=== PATIENT | female | born 1930 | race Caucasian/White ===

== ENCOUNTER 2018-04-13 20:36 | Observation (INO) | payer MEDICARE, BC ==
[2018-04-13] MEDS ORDERED: TYLENOL 325 MG (21:45)
[2018-04-13] MEDS ORDERED: Sodium Chloride 0.9% 1000 ML 1,000 ML (21:45)
[2018-04-13] MEDS: Sodium Chloride 0.9% 1000 ML 1,000 ML IV (21:49)
[2018-04-13] MEDS: TYLENOL 325 MG PO (21:50)
[2018-04-13 22:03] LABS: BASOPHIL % 0.2 % (0.0-0.4); Basophil (Absolute #) 0.02 (0-0.4); Granulocyte Absolute (ANC) 7.54 (1.4-6.9); Granulocytes % 72.1 % (36.0-66.0); Hematocrit 33.8 % (35-47); Hemoglobin 10.4 gm/dl (12.0-16.0); Lymphocyte (Absolute #) 2.19 (1.0-4.6); Lymphocytes % 20.9 % (24.0-44.0); Mean Cell Volume 97.4 fl (78-100); Mean Corpuscular Hgb Concent. 30.8 g/dl (32-36); Mean Platelet Volume 10.4 fl (6-9.5); Monocyte (Absolute #) 0.61 (0.0-1.3); Monocytes % 5.8 % (0.0-12.0); Platelet Count 376 K/mm3 (150-450); Red Blood Count 3.47 M/mm3 (4.1-5.4); Red Cell Distribution Width 17.9 % (11.5-14.0); White Blood Count 10.5 K/mm3 (4.0-10.5)
[2018-04-13 22:24] LABS: ADD MANUAL DIFF? NO (NO); Mean Corpuscular Hemoglobin 29.9 pg (26-32)
[2018-04-13 22:25] LABS: INR 1.04 (0.8-3.0)
[2018-04-13 22:25] LABS: PROTIME 12.1 SECONDS (9.95-12.35)
[2018-04-13 22:30] LABS: ALBUMIN 4.2 g/dL (3.5-5.0); ALKALINE PHOSPHATASE 68 U/L (38-126); AMYLASE 58 U/L (30-110); ANION GAP 15.8 MEQ/L (5-15); BLOOD UREA NITROGEN 16 mg/dL (7-17); CHLORIDE 102 mmol/L (98-107); Calcium 9.1 mg/dL (8.4-10.2); Carbon Dioxide 26 mmol/L (22-30); EST GLOMERULAR FILTRATION RATE > 60.0 ML/MIN; Glucose 118 mg/dL (74-106); LIPASE 22 U/L (23-300); Potassium 3.8 mmol/L (3.5-5.1); SGOT/AST 16 U/L (14-36); SGPT/ALT 16 U/L (0-35); SODIUM 139 mmol/L (137-145); Total Protein 7.4 g/dL (6.3-8.2)
[2018-04-13 22:34] LABS: ADD URINE CULTURE? NO (NO); Appearance CLEAR (CLEAR); Bilirubin NEGATIVE (NEGATIVE); Blood NEGATIVE Ery/ul (0-5); COMPLETE URINE MICROSCOPIC? NO; Collection Type CLEAN CATCH; Glucose NEGATIVE (NEGATIVE); Ketones NEGATIVE (NEGATIVE); Leukocyte Esterase NEGATIVE (NEGATIVE); Nitrite NEGATIVE (NEGATIVE); Protein,Urine Dip NEGATIVE (Negative); Urobilinogen NORMAL mg/dL (0-1)
[2018-04-13] MEDS ORDERED: Zofran 4 MG/2 ML VIAL (22:41)
[2018-04-13] MEDS ORDERED: SUBLIMAZE 100 MCG/2 ML (22:41)
[2018-04-13] MEDS: Zofran 4 MG/2 ML VIAL IV (22:46)
[2018-04-13] MEDS: SUBLIMAZE 100 MCG/2 ML IV (22:47)
[2018-04-14] MEDS ORDERED: Levofloxacin 500MG/100ML D5W 500 MG/100 ML BAG IV ×2 (00:12→22:00)
[2018-04-14] MEDS ORDERED: Sodium Chloride 0.9% 1000 ML 1,000 ML (00:16)
[2018-04-14] MEDS: Levofloxacin 500MG/100ML D5W 500 MG/100 ML BAG IV (00:20)
[2018-04-14] MEDS ORDERED: MORPHINE SULFATE 2 MG INJ IV (00:36)
[2018-04-14] MEDS ORDERED: DUONEB 0.5-3 MG/3 ml Neb IH (00:37)
[2018-04-14] MEDS: DUONEB 0.5-3 MG/3 ml Neb IH (00:40)
[2018-04-14] MEDS: Sodium Chloride 0.9% 1000 ML 1,000 ML IV ×2 (00:50→16:26)
[2018-04-14] MEDS: FLAGYL 500 MG IVPB 250 MG/50 ML BAG IV ×3 (05:43→17:51)
[2018-04-14 06:10] LABS: Lactic Acid 1.2 (0.4-2.0)
[2018-04-14] MEDS ORDERED: MORPHINE SULFATE 4 MG INJ IV (06:28)
[2018-04-14] MEDS: Zofran 4 MG/2 ML VIAL IV (08:07)
[2018-04-14] MEDS: PROTONIX 40 MG IV IV (09:46)
[2018-04-14] MEDS: TYLENOL 325 MG PO (09:54)
[2018-04-14] MEDS ORDERED: Ventolin Hfa MDI IH (09:59)
[2018-04-14] MEDS ORDERED: Lotrel 5/10 MG PO (10:00)
[2018-04-14] MEDS ORDERED: NON-FORMULARY ITEM (Omeprazole 20 Mg [Prilosec 20 Mg] 20 MG) PO (10:00)
[2018-04-14] MEDS ORDERED: BENAZEPRIL PO (10:00)
[2018-04-14] MEDS ORDERED: AMLODIPINE BESYLATE PO (10:00)
[2018-04-14] MEDS ORDERED: PROVENTIL COMMON CANISTER IH (10:04)
[2018-04-14] MEDS: NORVASC 5 MG PO (10:19)
[2018-04-14] MEDS: Lotensin 10 MG PO (10:19)
[2018-04-14] MEDS: ZYLOPRIM 100 MG PO (10:19)
[2018-04-14] MEDS: DELTASONE 5 MG PO (10:20)
[2018-04-14] MEDS: Protonix 40MG Tablet PO (10:20)
[2018-04-14] MEDS: TYLENOL EXTRA STRENGTH 500 MG PO (20:16)
[2018-04-14] MEDS: Levaquin 250MG/50ML D5W 250 MG/50 ML BAG IV (21:24)
[2018-04-15] MEDS: FLAGYL 500 MG IVPB 250 MG/50 ML BAG IV ×5 (00:03→23:14)
[2018-04-15] MEDS: TYLENOL EXTRA STRENGTH 500 MG PO ×3 (04:28→19:28)
[2018-04-15] MEDS: Sodium Chloride 0.9% 1000 ML 1,000 ML IV (05:54)
[2018-04-15] MEDS: ZYLOPRIM 100 MG PO (10:24)
[2018-04-15] MEDS: Lotensin 10 MG PO (10:24)
[2018-04-15] MEDS: DELTASONE 5 MG PO (10:24)
[2018-04-15] MEDS: NORVASC 5 MG PO (10:24)
[2018-04-15] MEDS: Protonix 40MG Tablet PO (10:25)
[2018-04-15] MEDS: DUONEB 0.5-3 MG/3 ml Neb IH (20:48)
[2018-04-15] MEDS: Levaquin 250MG/50ML D5W 250 MG/50 ML BAG IV (21:31)
[2018-04-16] MEDS: TYLENOL EXTRA STRENGTH 500 MG PO ×2 (01:00→09:04)
[2018-04-16] MEDS: FLAGYL 500 MG IVPB 250 MG/50 ML BAG IV ×2 (05:59→11:50)
[2018-04-16] MEDS: DUONEB 0.5-3 MG/3 ml Neb IH (06:34)
[2018-04-16] MEDS: NORVASC 5 MG PO (09:04)
[2018-04-16] MEDS: DELTASONE 5 MG PO (09:04)
[2018-04-16] MEDS: Lotensin 10 MG PO (09:04)
[2018-04-16] MEDS: ZYLOPRIM 100 MG PO (09:04)
[2018-04-16] MEDS: Protonix 40MG Tablet PO (09:04)
[2018-04-16] MEDS: BUMEX 1 MG PO (10:56)
== END 2018-04-16 14:30 | disposition home or self-care (01) ==
LOC: MED SURG 04-14 00:55 → ED 20:36
PROVIDERS: Internal Medicine
CPT/HCPCS: 36000; 36415; 71045; 74177; 80053; 81002; 82150; 83605; 83690; 85025; 85610; 87040; 94150; 94640; 94760; 96374; 99285; J1956; J2405; J3010

== ENCOUNTER 2018-09-27 18:37 | Emergency (ER) | payer MEDICARE, BC ==
[2018-09-27] MEDS ORDERED: Sodium Chloride 0.9% 1000 ML 1,000 ML IV SCH (19:15)
--- NOTE | 2018-09-27 19:19 | ERPHSYRPT ---
- History of Present Illness Time Seen by Provider: 09/27/18 19:20 Source: patient, family Exam Limitations: no limitations Physician History: 87-year-old, female with significant past medical history of hypertension, COPD , started having a blood in her urine. She denies any fever, chills, nausea, vomiting, or any pain during urination. Timing/Duration: today Activites at Onset: none Severity of Pain-Max: none Severity of Pain-Current: none Prior abdominal problems: none Sexual intercourse history: non-contributory Modifying Factors: Improves With: nothing Associated Symptoms: denies symptoms Allergies/Adverse Reactions: Tetracyclines Allergy (Mild, Verified 09/27/18 19:15) Home Medications: Albuterol Sulfate [Proair Hfa] 2 puff IH QID PRN PRN 01/07/15 [History] Allopurinol 100 mg [Zyloprim 100 mg] 1 tab PO DAILY 01/07/15 [History] Amlodipine Besylate/Benazepril [Lotrel 10-40 mg Capsule] 1 cap PO DAILY [History] Omeprazole 20 MG [Prilosec 20 mg] 20 mg PO DAILY 01/07/15 [History] Acetaminophen 500 mg [Tylenol Extra Strength 500 mg] 1,000 mg PO Q6H PRN PRN 04/14/18 [History] predniSONE [Prednisone] 5 mg PO DAILY 04/14/18 [History] Hx Tetanus, Diphtheria Vaccination/Date Given: No Hx Influenza Vaccination/Date Given: Yes Hx Pneumococcal Vaccination/Date Given: Yes - Review of Systems Constitutional: No Fever, No Chills Eyes: No Symptoms Ears, Nose, & Throat: No Symptoms Respiratory: No Cough, No Dyspnea Cardiac: No Chest Pain, No Edema, No Syncope Abdominal/Gastrointestinal: No Abdominal Pain, No Nausea, No Vomiting, No Diarrhea Genitourinary Symptoms: Hematuria, No Dysuria Musculoskeletal: No Back Pain, No Neck Pain Skin: No Rash Neurological: No Dizziness, No Focal Weakness, No Sensory Changes Psychological: No Symptoms Endocrine: No Symptoms All Other Systems: Reviewed and Negative - Past Medical History Pertinent Past Medical History: Yes Neurological History: No Pertinent History ENT History: Cataracts Cardiac History: Hypertension Respiratory History: Bronchitis, COPD Endocrine Medical History: No Pertinent History Musculoskeletal History: Arthritis GI Medical History: Polyps History: No Pertinent History Psycho-Social History: No Pertinent History Female Reproductive Disorders: No Pertinent History Other Medical History: anal polyp - Past Surgical History Past Surgical History: Yes Neuro Surgical History: No Pertinent History Cardiac: No Pertinent History Respiratory: No Pertinent History Gastrointestinal: No Pertinent History Genitourinary: No Pertinent History Musculoskeletal: No Pertinent History Female Surgical History: Lumpectomy Other Surgical History: anal polyp removed; breast lumpectomy, Melanoma removed from back - Social History Smoking Status: Former smoker Exposure to second hand smoke: No Drug Use: none Patient Lives Alone: No - Nursing Vital Signs Nursing Vital Signs: Initial Vital Signs Temperature 99.3 F 09/27/18 19:04 Pulse Rate 70 09/27/18 19:04 Respiratory Rate 20 09/27/18 19:04 Blood Pressure 182/101 09/27/18 19:04 O2 Sat by Pulse Oximetry 93 L 09/27/18 19:04 Pain Scale Pain Intensity 0 - Physical Exam General Appearance: no apparent distress, alert Eye Exam: PERRL/EOMI, eyes nml inspection Ears, Nose, Throat Exam: normal ENT inspection, TMs normal, pharynx normal, moist mucous membranes Neck Exam: normal inspection, non-tender, supple, full range of motion Respiratory Exam: normal breath sounds, lungs clear, No respiratory distress Cardiovascular Exam: regular rate/rhythm, normal heart sounds, normal peripheral pulses Gastrointestinal/Abdomen Exam: soft, No tenderness, No mass Back Exam: normal inspection, normal range of motion, No CVA tenderness, No vertebral tenderness Extremity Exam: normal inspection, normal range of motion, pelvis stable Neurologic Exam: alert, oriented x 3, cooperative, flight superintendent II-XII nml as tested, normal mood/affect, sensation nml, No motor deficits Skin Exam: normal color, warm, dry Lymphatic Exam: No adenopathy - Course Nursing assessment & vital signs reviewed: Yes Ordered Tests: Active Orders 24 hr Category Date Time Status IV Insertion STAT Care 09/27/18 19:10 Active CBC W DIFF Stat Lab 09/27/18 19:50 Completed CMP Stat Lab 09/27/18 20:00 Completed CULTURE,URINE Stat Lab 09/27/18 19:11 Ordered Lactic Acid Stat Lab 09/27/18 19:22 Completed Manual Differential NC Stat Lab 09/27/18 19:50 Completed UA W/RFX UR CULTURE Stat Lab 09/27/18 19:15 Ordered Medication Summary Generic Name Dose Route Start Last Admin Trade Name Corbinq PRN Reason Stop Dose Admin Sodium Chloride 1,000 mls @ 100 mls/hr 09/27/18 19:15 09/27/18 19:29 Sodium Chloride 0.9% 1000 Ml IV 10/27/18 19:14 100 mls/hr .Q10H LIZA Administration Ceftriaxone Sodium/Dextrose 1 g in 50 mls @ 100 mls/hr 09/27/18 20:56 21:16 Rocephin 1 Gm-D5w 50 Ml Bag IV 09/27/18 21:25 100 ml/hr STAT STA 100 mls/hr Administration Discontinued Medications Generic Name Dose Route Start Last Admin Trade Name Freq PRN Reason Stop Dose Admin Ceftriaxone Sodium/Dextrose Confirm 09/27/18 21:15 Rocephin 1 Gm-D5w 50 Ml Bag Administered 09/27/18 21:16 Dose 1 g in 50 mls @ ud IV .[facility] Lab/Rad Data: Laboratory Result Diagrams 09/27/18 19:50 09/27/18 20:00 Laboratory Results 09/27/18 09/27/18 09/27/18 Range/Units 20:00 19:50 19:22 WBC 17.8 H (4.0-10.5) K/mm3 RBC 3.88 L (4.1-5.4) M/mm3 Hgb 11.1 L (12.0-16.0) gm/dl Hct 37.3 (35-47) % MCV 96.1 (78-100) fl MCH 28.6 (26-32) pg MCHC 29.8 L (32-36) g/dl RDW 18.7 H (11.5-14.0) % Plt Count 410 (150-450) K/mm3 MPV 10.1 H (6-9.5) fl Sodium 138 (137-145) mmol/L Potassium 3.9 (3.5-5.1) mmol/L Chloride 96 L (98-107) mmol/L Carbon Dioxide 30 (22-30) mmol/L Anion Gap 14.8 (5-15) MEQ/L BUN 26 H (7-17) mg/dL Creatinine 0.80 (0.52-1.04) mg/dL Estimated GFR > 60.0 ML/MIN Glucose 109 H (74-106) mg/dL Lactic Acid 1.0 (0.4-2.0) Calcium 9.4 (8.4-10.2) mg/dL Total Bilirubin 0.60 (0.2-1.3) mg/dL AST 20 (14-36) U/L ALT 37 H (0-35) U/L Alkaline Phosphatase 60 (38-126) U/L Serum Total Protein 6.8 (6.3-8.2) g/dL Albumin 4.1 (3.5-5.0) g/dL - Progress Progress: improved Air Movement: good Blood Culture(s) Obtained: No Antibiotics given: Yes Counseled pt/family regarding: lab results, diagnosis, need for follow-up - Departure Time of Disposition: 21:25 Departure Disposition: Home Clinical Impression: UTI (urinary tract infection) Qualifiers: Urinary tract infection type: acute pyelonephritis Qualified Code(s): N10 - Acute pyelonephritis Hematuria Qualifiers: Hematuria type: gross Qualified Code(s): R31.0 - Gross hematuria Condition: Stable Critical Care Time: Yes Critical Care Time(excluding separately billable procedures): 30-74 minutes Referrals: DAWIT RANDHAWA MD [Primary Care Provider] - Instructions: Blood in the Urine (Hematuria) in Adults Additional Instructions: URINARY TRACT INFECTION 1. You will need to drink plenty of fluids in order to keep your urinary system flushed. These fluids should mainly consist of water and juices. 2. Take medications as directed. You need to completely finish any antiobiotic prescription given. 3. Try to avoid coffee, tea, alcohol, and seasoned foods as they may cause bladder irritation. 4. If signs and symptoms persist after 3-4 days, you will need to follow up with your family physician. 5. Female Patients: A. Avoid intercourse for 3-4 days. B. Empty bladder before and after intercourse to reduce risk of re- infection. C. After emptying bladder, wipe from front to back to reduce the risk of re- infection. KIERANÁNGELA ROGERS was seen on 09/27/18 n the Emergency Room. At that time you were treated for an emergent condition, during your visit Laboratory, Radiology and/or other procedures may have been ordered. It is very important that you follow-up with your Primary Care Physician DAWIT RANDHAWA within the next 24-48 hours to review your Emergency Room visit and the final results of testing that was ordered. Some test results such as Urine Cultures, Blood Cultures, and other cultures if ordered will not be finalized for 24-48 hours. If you do not have a Primary Care Provider please call the medical records department at [phone] to obtain a copy of your results or you may sign into our patient portal to obtain these results by visiting us @ [email or web address] and completing the following steps: 1. Click on the Patient Portal link 2. Click the Patient Self Enrollment Link to complete the enrollment form and entering your 3. Once the enrollment form is completed you will receive an email with a temporary ID and password at the email address you provided. 4. Next choose a user name and password. Your user name must be at least 4 characters long and your password must be at least 4 characters long. 5. Choose a security question from the list and provide your answer to the question. If you already have signed into the Health Portal you may access your Health Care Information 24/06 by the following steps: 1. Login to our website @ [email or web address] 2. Enter your original user name and password. FAQS [facility] Health Portal is an online tool that contains your Lab Results, Radiology Reports, Visit History, Discharge Instructions and Health Summary Lab and Radiology Results will not be available for 72 hours on the portal. The Portal is a secure site, passwords are encryted and URLs are re-written so they cannot be copied and pasted. You and authorized family members are the only ones who can access your Portal. Also there is a timeout feature that protects your information if you leave the Portal page open. If you have technical difficulty please use the Contact Us link on the page this will allow you to submit any questions you have regarding the Portal or you may contact the Medical Record Department at [phone] ext [phone]. Prescriptions: Ciprofloxacin [Cipro 500 MG] 500 mg PO BIDAC #20 tablet
[2018-09-27] MEDS ORDERED: Sodium Chloride 0.9% 1000 ML 1,000 ML ONE (19:29)
[2018-09-27 20:21] LABS: Hematocrit 37.3 % (35-47); Hemoglobin 11.1 gm/dl (12.0-16.0); Mean Cell Volume 96.1 fl (78-100); Mean Corpuscular Hemoglobin 28.6 pg (26-32); Mean Corpuscular Hgb Concent. 29.8 g/dl (32-36); Mean Platelet Volume 10.1 fl (6-9.5); Platelet Count 410 K/mm3 (150-450); Red Blood Count 3.88 M/mm3 (4.1-5.4); Red Cell Distribution Width 18.7 % (11.5-14.0); White Blood Count 17.8 K/mm3 (4.0-10.5)
[2018-09-27 20:40] LABS: ALBUMIN 4.1 g/dL (3.5-5.0); ALKALINE PHOSPHATASE 60 U/L (38-126); ANION GAP 14.8 MEQ/L (5-15); BLOOD UREA NITROGEN 26 mg/dL (7-17); CHLORIDE 96 mmol/L (98-107); Calcium 9.4 mg/dL (8.4-10.2); Carbon Dioxide 30 mmol/L (22-30); Glucose 109 mg/dL (74-106); Potassium 3.9 mmol/L (3.5-5.1); SGOT/AST 20 U/L (14-36); SGPT/ALT 37 U/L (0-35); SODIUM 138 mmol/L (137-145); Total Protein 6.8 g/dL (6.3-8.2)
[2018-09-27] MEDS ORDERED: ROCEPHIN 1 Gm-D5w 50 ml Bag** 1 G/50 ML IVPB IV STA (20:56)
[2018-09-27] MEDS ORDERED: ROCEPHIN 1 Gm-D5w 50 ml Bag** 1 G/50 ML IVPB IV ONE (21:15)
[2018-09-27 22:04] VITALS: BP 121/74; PULSE 84; O2SAT 96
[2018-09-28 04:51] LABS: BAND 13 % (0.0-2.0); Lymphocytes 18 % (24-44); Monocyte 9 % (0.0-12.0); Neutrophils 60 % (36.0-66.0); Platelet Estimate NORMAL (NORMAL); Total Cells Counted 100
[2018-09-28 04:52] LABS: ANISOCYTOSIS 2+; Poikilocytosis 1+
[2018-09-28 05:12] LABS: Granulocyte Absolute (ANC) 13.02 (1.4-6.9)
== END 2018-09-27 22:03 | disposition home or self-care (01) ==
LOC: ED 18:37
DX: N10 Acute pyelonephritis (principal); R31.0 Gross hematuria; I10 Essential (primary) hypertension; J44.9 Chronic obstructive pulmonary disease, unspecified; Z79.899 Other long term (current) drug therapy; R31.9 Hematuria, unspecified
CPT/HCPCS: 36000; 36415; 80053; 83605; 85025; 87077; 87086; 87186; 96360; 96361; 96365; 99284; J0696

== ENCOUNTER 2020-02-05 19:27 | Inpatient (IN) | payer MEDICARE, BC ==
[2020-02-05] MEDS ORDERED: Colace 100 MG PO PRN (20:08)
[2020-02-05] MEDS ORDERED: Zofran 4 MG/2 ML VIAL IV PRN (20:08)
--- NOTE | 2020-02-05 20:16 | PCM.HP ---
History of Present Illness - Chief Complaint Chief Complaint: COPD exacerbation, failed outpatient treatment for 3 days History of Present Illness: is a 89 year old female started having shortness of breath, fever, chills for 3 days. Patient was seen in office and was treated with antibiotics but her shortness of breath is getting worse so was admitted for further management. - Review of Systems Constitutional: Fever, Chills, Fatigue, Weakness Eyes: No Symptoms Ears, Nose, & Throat: No Symptoms Respiratory: Cough, Orthopnea, Short Of Breath, Wheezing Cardiac: No Chest Pain, No Edema, No Syncope Abdominal/Gastrointestinal: No Abdominal Pain, No Nausea, No Vomiting, No Diarrhea Genitourinary Symptoms: No Dysuria Musculoskeletal: No Back Pain, No Neck Pain Skin: No Rash Neurological: No Dizziness, No Focal Weakness, No Sensory Changes Psychological: No Symptoms Endocrine: No Symptoms Hematologic/Lymphatic: No Symptoms Immunological/Allergic: No Symptoms Medications & Allergies Home Medications: Home Medication List Albuterol Sulfate [Proair Hfa] 2 puff IH QID PRN PRN 01/07/15 [History Confirmed 04/14/18] Allopurinol 100 mg [Zyloprim 100 mg] 1 tab PO DAILY 01/07/15 [History Confirmed 04/14/18] Amlodipine Besylate/Benazepril [Lotrel 10-40 mg Capsule] 1 cap PO DAILY [History Confirmed 04/14/18] Omeprazole 20 MG [Prilosec 20 mg] 20 mg PO DAILY 01/07/15 [History Confirmed ] Acetaminophen 500 mg [Tylenol Extra Strength 500 mg] 1,000 mg PO Q6H PRN PRN 04/14/18 [History Confirmed 04/14/18] predniSONE [Prednisone] 5 mg PO DAILY 04/14/18 [History Confirmed 04/14/18] Metronidazole 250 mg PO TID #15 tablet 04/16/18 [Rx] Ciprofloxacin [Cipro 500 MG] 500 mg PO BIDAC #20 tablet 09/27/18 [Rx] Allergies/Adverse Reactions: Allergies Allergy/AdvReac Type Severity Reaction Status Date / Time Tetracyclines Allergy Mild Verified 09/27/18 19:15 - Past Medical History Past Medical History: Yes Neurological History: Other ENT History: Cataracts Cardiac History: Congestive Heart Failure, Hypertension Respiratory History: Other Endocrine Medical History: No Pertinent History Musculoskelatal History: Osteoarthritis GI Medical History: Polyps History: No Pertinent History Pyscho-Social History: No Pertinent History Reproductive Disorders: No Pertinent History Comment: Pt is on 2-2.5L at night and uses daytime as needed. - Past Surgical History Past Surgical History: Yes Neuro Surgical History: No Pertinent History Cardiac History: No Pertinent History Respiratory Surgery: No Pertinent History GI Surgical History: No Pertinent History Genitourinary Surgical Hx: No Pertinent History Musculskeletal Surgical Hx: No Pertinent History Female Surgical History: Lumpectomy Other Surgical History: anal polyp removed; breast lumpectomy, Melanoma removed from back - Social History Smoking Status: Former smoker Exposure to second hand smoke: No Alcohol: None Drug Use: none - Physical Exam General Appearance: moderate distress, alert Neurologic Exam: alert, oriented x 3, cooperative, normal mood/affect, nml station & gait, sensation nml, No motor deficits Eye Exam: PERRL/EOMI, eyes nml inspection Ears, Nose, Throat Exam: normal ENT inspection, TMs normal, pharynx normal, moist mucous membranes Neck Exam: normal inspection, non-tender, supple, full range of motion Respiratory Exam: respiratory distress, diminished breath sounds, crackles/rales , rhonchi, wheezing Cardiovascular Exam: regular rate/rhythm, normal heart sounds, normal peripheral pulses Gastrointestinal/Abdomen Exam: soft, normal bowel sounds, No tenderness, No mass Back Exam: normal inspection, normal range of motion, No CVA tenderness, No vertebral tenderness Extremity Exam: normal inspection, normal range of motion, pelvis stable Skin Exam: normal color, warm, dry, No rash Lymphatic Exam: No adenopathy Results - Radiology Impressions Radiology Exams & Impressions: Radiology Procedures Category Date Time Status CHEST 2 VIEWS (PA AND LAT) Stat Exams 02/05/20 Ordered - Other Procedures and Tests Respiratory Therapy 02/05/20 20:08 EKG STAT Oxygen Nasal Cannula 3 lpm Respiratory Therapy Consult ROUTINE Assessment/Plan (1) Acute exacerbation of chronic bronchitis Current Visit: No Status: Acute Assessment & Plan: Chief Complaint Diagnosis COPD exacerbation, failed outpatient treatment Allergies Allergy/AdvReac Type Severity Reaction Status Date / Time Tetracyclines Allergy Mild Verified 09/27/18 19:15 Current Medications Generic Name Dose Route Start Last Admin Trade Name Freq PRN Reason Stop Dose Admin Acetaminophen 325 mg 02/05/20 20:08 Tylenol 325 Mg PO 03/06/20 20:07 Q4H PRN PRN PAIN, FEVER, HEADACHE Albuterol/Ipratropium 3 ml 02/06/20 01:00 Duoneb 0.5-3 Mg/3 Ml Neb IH 03/07/20 00:59 Q6HRT LIZA Albuterol/Ipratropium 3 ml 02/05/20 20:08 Duoneb 0.5-3 Mg/3 Ml Neb IH 02/05/20 20:09 STAT ONE Docusate Sodium 100 mg 02/05/20 20:08 Colace 100 Mg PO 03/06/20 20:07 BIDPRN PRN CONSTIPATION Enoxaparin Sodium 40 mg 02/06/20 10:00 Enoxaparin Sodium SQ 03/07/20 09:59 DAILY LIZA Azithromycin 500 mg in 250 mls @ 250 mls/hr 02/06/20 10:00 Zithromax 500 Mg/ 250 Ml Nacl Premix IV 03/07/20 09:59 Q24H10 LIZA Ceftriaxone Sodium/Dextrose 1 g in 50 mls @ 100 mls/hr 02/06/20 10:00 Rocephin 1 Gm-D5w 50 Ml Bag IV 03/07/20 09:59 Q24H10 LIZA Sodium Chloride 1,000 mls @ 100 mls/hr 02/05/20 20:15 Sodium Chloride 0.9% 1000 Ml IV 03/06/20 20:14 .Q10H LIZA Ondansetron HCl 4 mg 02/05/20 20:08 Zofran 4 Mg/2 Ml Vial IV 03/06/20 20:07 Q6H PRN PRN NAUSEA/VOMITING Microbiology Results (Last 24 hours) 02/05/20 20:10 Blood Blood Culture Gram Stain - Pending 02/05/20 20:10 Blood Blood Culture - Pending 02/05/20 20:10 Blood Blood Culture Gram Stain - Pending 02/05/20 20:10 Blood Blood Culture - Pending Orders (Last 24 hours) Category Date Time Status Up Ad Alessandra TOLERATED Activity 02/05/20 20:10 Active Admit as Inpatient ROUTINE Care 02/05/20 20:09 Active Miscellaneous Nursing Order ROUTINE Care 02/05/20 20:08 Active Telemetry PROTOCOL Care 02/05/20 20:10 Active Regular Diet Diet 02/05/20 Dinner Active CHEST 2 VIEWS (PA AND LAT) Stat Exams 02/05/20 Ordered BLOOD CULTURE Stat Lab 02/05/20 20:10 Ordered CBC W DIFF Stat Lab 02/05/20 20:08 Ordered CMP Stat Lab 02/05/20 20:08 Ordered CULTURE,SPUTUM Stat Lab 02/05/20 20:10 Uncollected NT PRO BNP Stat Lab 02/05/20 20:08 Ordered Acetaminophen 325 mg [Tylenol 325 mg] Med 02/05/20 20:08 Ordered 325 mg PO Q4H PRN PRN Albuterol/Ipratropium 3ml Neb* [DUONEB 0.5-3 MG/3 ml Med 02/06/20 01:00 Ordered Neb] 3 ml IH Q6HRT Albuterol/Ipratropium 3ml Neb* [DUONEB 0.5-3 MG/3 ml Med 02/05/20 20:08 Once Neb] 3 ml IH STAT ONE Azithromycin 500 mg/250 ml [Zithromax 500 MG/ 250 ML Med 02/06/20 10:00 Ordered NaCl Premix] 500 mg in 250 ml IV Q24H10 Ceftriaxone 1 GM/50 ML PREMIX* [ROCEPHIN 1 Gm-D5w 50 ml Med 02/06/20 10:00 Ordered Bag] 1 g in 50 ml IV Q24H10 Docusate Sodium 100 mg [Colace 100 MG] Med 02/05/20 20:08 Ordered 100 mg PO BIDPRN PRN Enoxaparin Sodium [Enoxaparin Sodium] Med 02/06/20 10:00 Ordered 40 mg SQ DAILY NaCl 0.9% 1000 ml [Sodium Chloride 0.9% 1000 ML] 1,000 Med 02/05/20 20:15 Ordered ml IV 100 mls/hr Ondansetron HCl 4 mg/2 ml [Zofran 4 MG/2 ML VIAL] Med 02/05/20 20:08 Ordered 4 mg IV Q6H PRN PRN EKG STAT RT 02/05/20 20:08 Ordered Oxygen Nasal Cannula 3 lpm RT 02/05/20 20:08 Ordered Respiratory Therapy Consult ROUTINE RT 02/05/20 20:08 Ordered Patient Care Notes (Last 24 hours) 02/05/20 20:04 Nursing Note by Radha Crowley Patient arrived to ER and Dr. Brit ng admitted her to room 104. Initialized on 02/05/20 20:04 - END OF NOTE Code(s): J20.9 - ACUTE BRONCHITIS, UNSPECIFIED; J42 - UNSPECIFIED CHRONIC BRONCHITIS (2) COPD (chronic obstructive pulmonary disease) Current Visit: No Status: Chronic (3) HTN (hypertension) Current Visit: No Status: Chronic Code(s): I10 - ESSENTIAL (PRIMARY) HYPERTENSION
[2020-02-05] MEDS ORDERED: Zithromax 500 MG/ 250 ML NaCl Premix 500 MG/250 ML IVPB IV ONE (20:36)
[2020-02-05] MEDS ORDERED: ROCEPHIN 1 Gm-D5w 50 ml Bag** 1 G/50 ML IVPB IV ONE (20:37)
[2020-02-05] MEDS ORDERED: ENOXAPARIN SODIUM SQ ONE (20:40)
[2020-02-05 20:52] LABS: Absolute Neutrophil Ct (ANC) 8.91 (1.4-6.9); BASOPHIL % 0.1 % (0.0-0.4); Basophil (Absolute #) 0.01 (0-0.4); Eosinophil % 0.3 % (0.00-5.0); Eosinophil (Absolute #) 0.03 (0-0.5); Hematocrit 33.5 % (35-47); Hemoglobin 10.4 gm/dl (12.0-16.0); Lymphocyte (Absolute #) 0.88 (1.0-4.6); Lymphocytes % 8.4 % (24.0-44.0); Mean Cell Volume 109.8 fl (78-100); Mean Corpuscular Hemoglobin 34.1 pg (26-32); Mean Platelet Volume 10.5 fl (7.5-11.0); Monocyte (Absolute #) 0.62 (0.0-1.3); Monocytes % 5.9 % (0.0-12.0); Neutrophil % 85.3 % (36.0-66.0); Platelet Count 353 K/mm3 (150-450); Red Blood Count 3.05 M/mm3 (4.1-5.4); Red Cell Distribution Width 16.4 % (11.5-14.0); White Blood Count 10.5 K/mm3 (4.0-10.5)
[2020-02-05] MEDS: DUONEB 0.5-3 MG/3 ml Neb IH ONE (20:57)
[2020-02-05] MEDS: ENOXAPARIN SODIUM SQ SCH (20:59)
[2020-02-05 21:12] LABS: ALKALINE PHOSPHATASE 54 U/L (38-126); ANION GAP 13.4 MEQ/L (5-15); BLOOD UREA NITROGEN 14 mg/dL (7-17); CHLORIDE 102 mmol/L (98-107); Calcium 9.2 mg/dL (8.4-10.2); Carbon Dioxide 26 mmol/L (22-30); Creatinine 1 0.76 mg/dL (0.52-1.04); Glucose 150 mg/dL (74-106); NT PRO BNP 537 pg/mL (0-1800); Potassium 3.9 mmol/L (3.5-5.1); SGOT/AST 17 U/L (14-36); SGPT/ALT 12 U/L (0-35); SODIUM 137 mmol/L (137-145); Total Protein 7.6 g/dL (6.3-8.2)
[2020-02-05 21:24] LABS: INFLUENZA B NEGATIVE (NEGATIVE); RESPIRATORY SYNCTIAL VIRUS NEGATIVE (Negative)
[2020-02-05 21:26] LABS: INFLUENZA A POSITIVE (NEGATIVE)
[2020-02-05] MEDS: Sodium Chloride 0.9% 1000 ML 1,000 ML IV SCH (22:01)
[2020-02-05] MEDS: Mirapex 0.5 MG Tablet PO SCH (22:33)
[2020-02-05] MEDS: solu-MEDROL 40 MG IV SCH (22:33)
[2020-02-05] MEDS: Aldactone 25 MG PO SCH (22:33)
[2020-02-05] MEDS: Tamiflu 75MG Capsule PO SCH (22:33)
[2020-02-06] MEDS: DUONEB 0.5-3 MG/3 ml Neb IH SCH ×4 (00:59→19:12)
[2020-02-06] MEDS: TYLENOL 325 MG PO PRN (06:18)
[2020-02-06] MEDS: DUONEB 0.5-3 MG/3 ml Neb IH ONE (06:49)
--- NOTE | 2020-02-06 07:16 | PCM.NOTE ---
Date and Time: 02/06/20713 Subjective Assessment: doing ok, still short of breath - Review of Systems Constitutional: No Fever, No Chills Eyes: No Symptoms Ears, Nose, & Throat: No Symptoms Respiratory: Cough, Short Of Breath Cardiac: No Chest Pain, No Edema, No Syncope Abdominal/Gastrointestinal: No Abdominal Pain, No Nausea, No Vomiting, No Diarrhea Genitourinary Symptoms: No Dysuria Musculoskeletal: No Back Pain, No Neck Pain Skin: No Rash Neurological: No Dizziness, No Focal Weakness, No Sensory Changes Psychological: No Symptoms Endocrine: No Symptoms Hematologic/Lymphatic: No Symptoms Immunological/Allergic: No Symptoms Objective Exam General Appearance: no apparent distress, alert Neurologic Exam: alert, oriented x 3, cooperative, normal mood/affect, nml cerebellar function, sensation nml, No motor deficits Skin Exam: normal color, warm, dry Eye Exam: PERRL, EOMI, eyes nml inspection Ears, Nose, Throat Exam: normal ENT inspection, pharynx normal, moist mucous membranes Neck Exam: normal inspection, non-tender, supple, full range of motion Respiratory Exam: diminished breath sounds, crackles/rales, rhonchi, wheezing, No respiratory distress Cardiovascular Exam: regular rate/rhythm, normal heart sounds Gastrointestinal/Abdomen Exam: soft, No tenderness, No mass Extremity Exam: normal inspection, normal range of motion Back Exam: normal inspection, normal range of motion, No CVA tenderness, No vertebral tenderness Pelvic Exam: deferred Rectal Exam: deferred OBJECTIVE DATA Vital Signs: Vital Signs - 24 hr Temp Pulse Resp BP Pulse Ox 02/06/20 06:59 95 H 18 95 02/06/20 04:00 97.9 F 112 H 16 125/65 95 02/06/20 00:59 90 18 94 L 02/05/20 23:34 97.1 F 102 H 19 114/50 90 L 02/05/20 20:57 96 H 20 92 L 02/05/20 20:27 97.7 F 112 H 20 141/60 94 L Oxygen-Last 24 hours Oxygen Flowrate (L/min)-RT 2 Pain Assessment - Last Documented Pain Intensity 9 Pain Scale Used 0-10 Pain Scale Intake and Output: Intake & Output 02/03/20 02/04/20 02/05/20 02/06/20 11:59 11:59 11:59 11:59 Intake Total 1067 Output Total 250 Balance 817 Weight 91 kg Lab Results: Lab Results-Last 24 Hours 02/05/20 02/05/20 02/05/20 Range/Units 20:35 20:35 20:35 WBC 10.5 (4.0-10.5) K/mm3 RBC 3.05 L (4.1-5.4) M/mm3 Hgb 10.4 L (12.0-16.0) gm/dl Hct 33.5 L (35-47) % MCV 109.8 H (78-100) fl MCH 34.1 H (26-32) pg MCHC 31.0 L (32-36) g/dl RDW 16.4 H (11.5-14.0) % Plt Count 353 (150-450) K/mm3 MPV 10.5 (7.5-11.0) fl Gran % 85.3 H (36.0-66.0) % Eos # (Auto) 0.03 (0-0.5) Absolute Lymphs (auto) 0.88 L (1.0-4.6) Absolute Monos (auto) 0.62 (0.0-1.3) Lymphocytes % 8.4 L (24.0-44.0) % Monocytes % 5.9 (0.0-12.0) % Eosinophils % 0.3 (0.00-5.0) % Basophils % 0.1 (0.0-0.4) % Absolute Granulocytes 8.91 H (1.4-6.9) Basophils # 0.01 (0-0.4) Sodium 137 (137-145) mmol/L Potassium 3.9 (3.5-5.1) mmol/L Chloride 102 (98-107) mmol/L Carbon Dioxide 26 (22-30) mmol/L Anion Gap 13.4 (5-15) MEQ/L BUN 14 (7-17) mg/dL Creatinine 0.76 (0.52-1.04) mg/dL Estimated GFR > 60.0 ML/MIN Glucose 150 H (74-106) mg/dL Calcium 9.2 (8.4-10.2) mg/dL Total Bilirubin 0.90 (0.2-1.3) mg/dL AST 17 (14-36) U/L ALT 12 (0-35) U/L Alkaline Phosphatase 54 (38-126) U/L NT-Pro-B Natriuret Pep 537 (0-1800) pg/mL Serum Total Protein 7.6 (6.3-8.2) g/dL Albumin 4.0 (3.5-5.0) g/dL Influenza Type A Ag POSITIVE (NEGATIVE) Influenza Type B Ag NEGATIVE (NEGATIVE) RSV (PCR) NEGATIVE (Negative) Radiology Exams: Radiology Procedures Category Date Time Status CHEST 2 VIEWS (PA AND LAT) Stat Exams 02/05/20 21:36 Taken Assessment/Plan (1) Influenza A Current Visit: Yes Status: Acute Assessment & Plan: Chief Complaint Diagnosis COPD exacerbation, failed outpatient treatment for 3 days Allergies Allergy/AdvReac Type Severity Reaction Status Date / Time Tetracyclines Allergy Mild Verified 09/27/18 19:15 Vital Signs (Last 24 hours) Temp Pulse Resp BP Pulse Ox 02/06/20 06:59 95 H 18 95 02/06/20 04:00 97.9 F 112 H 16 125/65 95 02/06/20 00:59 90 18 94 L 02/05/20 23:34 97.1 F 102 H 19 114/50 90 L 02/05/20 20:57 96 H 20 92 L 02/05/20 20:27 97.7 F 112 H 20 141/60 94 L Home Medications Medication Instructions Recorded Confirmed Last Taken Type Amlodipine Besylate 5 mg 2.5 mg PO DAILY 02/05/20 02/05/20 Unknown History [Norvasc 5 mg] Escitalopram Oxalate 10 mg 10 mg PO DAILY 02/05/20 02/05/20 Unknown History [Lexapro 10 MG] Potassium Chloride 10 Meq Tab* 10 meq PO DAILY 02/05/20 02/05/20 Unknown History [Klor Con 10 MEQ] Pramipexole Di-HCl 0.5 mg 0.5 mg PO HS 02/05/20 02/05/20 Unknown History [Mirapex 0.5 MG Tablet] Spironolactone 50 mg PO BID 02/05/20 02/05/20 Unknown History Vits A,C,E/Lutein/Minerals [Vision 1 each PO DAILY 02/05/20 02/05/20 Unknown History Formula with Lutein Tab] Current Medications Generic Name Dose Route Start Last Admin Trade Name Freq PRN Reason Stop Dose Admin Acetaminophen 325 mg 02/05/20 20:08 02/06/20 06:18 Tylenol 325 Mg PO 03/06/20 20:07 325 mg Q4H PRN PRN Administration PAIN, FEVER, HEADACHE Hydrocodone Bitart/Acetaminophen 1 tab 02/06/20 07:03 [place] 5/325 Mg PO 02/11/20 07:02 Q4H PRN PRN PAIN Albuterol/Ipratropium 3 ml 02/06/20 01:00 02/06/20 00:59 Duoneb 0.5-3 Mg/3 Ml Neb IH 03/07/20 00:59 3 ml Q6HRT LIZA Administration Allopurinol mg 02/06/20 10:00 Zyloprim 100 Mg PO 03/07/20 09:59 DAILY LIZA Amlodipine Besylate 2.5 mg 02/06/20 10:00 Norvasc 5 Mg PO 03/07/20 09:59 DAILY LIZA Docusate Sodium 100 mg 02/05/20 20:08 Colace 100 Mg PO 03/06/20 20:07 BIDPRN PRN CONSTIPATION Enoxaparin Sodium 40 mg 02/06/20 10:00 02/05/20 20:59 Enoxaparin Sodium SQ 03/07/20 09:59 40 mg DAILY LIZA Administration Escitalopram Oxalate 10 mg 02/06/20 10:00 Lexapro 10 Mg PO 03/07/20 09:59 DAILY LIZA Sodium Chloride 1,000 mls @ 100 mls/hr 02/05/20 20:15 02/05/20 22:01 Sodium Chloride 0.9% 1000 Ml IV 03/06/20 20:14 100 mls/hr .Q10H LIZA Administration Ceftriaxone Sodium/Dextrose 1 g in 50 mls @ 100 mls/hr 02/06/20 22:00 Rocephin 1 Gm-D5w 50 Ml Bag IV 03/07/20 21:59 Q24H22 LIZA Azithromycin 500 mg in 250 mls @ 250 mls/hr 02/06/20 22:00 Zithromax 500 Mg/ 250 Ml Nacl Premix IV 03/07/20 21:59 Q24H22 LIZA Methylprednisolone Sodium Succinate 40 mg 02/05/20 22:00 02/05/20 22:33 Solu-Medrol 40 Mg IV 03/06/20 21:59 40 mg DAILY LIZA Administration Non-Formulary Medication 20 mg 02/06/20 10:00 Omeprazole 20 Mg [Prilosec 20 Mg] PO 03/07/20 09:59 DAILY LIZA Non-Formulary Medication 1 each 02/06/20 10:00 Vits A,C,E/Lutein/Minerals [Vision Formula With Lutein Tab] PO 03/07/20 09: 59 DAILY LIZA Ondansetron HCl 4 mg 02/05/20 20:08 02/05/20 23:54 Zofran 4 Mg/2 Ml Vial IV 03/06/20 20:07 4 mg Q6H PRN PRN Administration NAUSEA/VOMITING Oseltamivir Phosphate 75 mg 02/05/20 22:00 02/05/20 22:33 Tamiflu 75mg Capsule PO 02/10/20 21:59 75 mg BID LIZA Administration Potassium Chloride 10 meq 02/06/20 10:00 Klor Con 10 Meq PO 03/07/20 09:59 DAILY LIZA Pramipexole Dihydrochloride 0.5 mg 02/05/20 22:40 02/05/20 22:33 Mirapex 0.5 Mg Tablet PO 03/06/20 22:39 0.5 mg HS LIZA Administration Spironolactone 50 mg 02/05/20 22:40 02/05/20 22:33 Aldactone 25 Mg PO 03/06/20 22:39 50 mg BID LIZA Administration Discontinued Medications Generic Name Dose Route Start Last Admin Trade Name Freq PRN Reason Stop Dose Admin Albuterol/Ipratropium 3 ml 02/05/20 20:08 02/06/20 06:49 Duoneb 0.5-3 Mg/3 Ml Neb IH 02/05/20 20:09 3 ml STAT ONE Administration Enoxaparin Sodium Confirm 02/05/20 20:40 Enoxaparin Sodium Administered 02/05/20 20:41 Dose 40 mg SQ .STK-MED ONE Azithromycin 500 mg in 250 mls @ 250 mls/hr 02/06/20 10:00 02/05/20 22:35 Zithromax 500 Mg/ 250 Ml Nacl Premix IV 03/07/20 09:59 250 mls/hr Q24H10 LIZA Administration Ceftriaxone Sodium/Dextrose 1 g in 50 mls @ 100 mls/hr 02/06/20 10:00 22:01 Rocephin 1 Gm-D5w 50 Ml Bag IV 03/07/20 09:59 100 mls/hr Q24H10 LIZA Administration Azithromycin Confirm 02/05/20 20:36 Zithromax 500 Mg/ 250 Ml Nacl Premix Administered 02/05/20 20:37 Dose 500 mg in 250 mls @ ud IV .STK-MED ONE Ceftriaxone Sodium/Dextrose Confirm 02/05/20 20:37 Rocephin 1 Gm-D5w 50 Ml Bag Administered 02/05/20 20:38 Dose 1 g in 50 mls @ ud IV .STK-MED ONE Intake & Output (Last 24 hours) 02/03/20 02/04/20 02/05/20 02/06/20 11:59 11:59 11:59 11:59 Intake Total 1067 Output Total 250 Balance 817 Weight 91 kg Microbiology Results (Last 24 hours) 02/05/20 21:09 Blood Blood Culture Gram Stain - Pending 02/05/20 21:09 Blood Blood Culture - Pending 02/05/20 20:35 Blood Blood Culture Gram Stain - Pending 02/05/20 20:35 Blood Blood Culture - Pending Laboratory Results (Last 24 hours) 02/05/20 02/05/20 02/05/20 20:35 20:35 20:35 WBC 10.5 RBC 3.05 L Hgb 10.4 L Hct 33.5 L MCV 109.8 H MCH 34.1 H MCHC 31.0 L RDW 16.4 H Plt Count 353 MPV 10.5 Gran % 85.3 H Eos # (Auto) 0.03 Absolute Lymphs (auto) 0.88 L Absolute Monos (auto) 0.62 Lymphocytes % 8.4 L Monocytes % 5.9 Eosinophils % 0.3 Basophils % 0.1 Absolute Granulocytes 8.91 H Basophils # 0.01 Sodium 137 Potassium 3.9 Chloride 102 Carbon Dioxide 26 Anion Gap 13.4 BUN 14 Creatinine 0.76 Estimated GFR > 60.0 Glucose 150 H Calcium 9.2 Total Bilirubin 0.90 AST 17 ALT 12 Alkaline Phosphatase 54 NT-Pro-B Natriuret Pep 537 Serum Total Protein 7.6 Albumin 4.0 Influenza Type A Ag POSITIVE Influenza Type B Ag NEGATIVE RSV (PCR) NEGATIVE Orders (Last 24 hours) Category Date Time Status Up Ad Alessandra TOLERATED Activity 02/05/20 20:10 Active Admit as Inpatient ROUTINE Care 02/05/20 20:09 Active Miscellaneous Nursing Order ROUTINE Care 02/05/20 20:08 Active Telemetry PROTOCOL Care 02/05/20 20:10 Active Armature Tester/Discharge Plan Cons 02/05/20 21:24 Active Nutritional Admission Screen Diet 02/05/20 21:24 Active Regular Diet Diet 02/05/20 Dinner Active CHEST 2 VIEWS (PA AND LAT) Stat Exams 02/05/20 21:36 Taken BLOOD CULTURE Stat Lab 02/05/20 21:09 Received CBC W DIFF Stat Lab 02/05/20 20:35 Completed CMP Stat Lab 02/05/20 20:35 Completed CULTURE,SPUTUM Stat Lab 02/05/20 20:10 Uncollected NT PRO BNP Stat Lab 02/05/20 20:35 Completed Respiratory Panel Stat Lab 02/05/20 20:35 Completed Acetaminophen 325 mg [Tylenol 325 mg] Med 02/05/20 20:08 Active 325 mg PO Q4H PRN PRN Albuterol/Ipratropium 3ml Neb* [DUONEB 0.5-3 MG/3 ml Med 02/06/20 01:00 Active Neb] 3 ml IH Q6HRT Albuterol/Ipratropium 3ml Neb* [DUONEB 0.5-3 MG/3 ml Med 02/05/20 20:08 Discontinued Neb] 3 ml IH STAT ONE Allopurinol 100 mg [Zyloprim 100 mg] Med 02/06/20 10:00 Ordered DOSE mg PO DAILY Amlodipine Besylate 5 mg [Norvasc 5 mg] Med 02/06/20 10:00 Ordered 2.5 mg PO DAILY Azithromycin 500 mg/250 ml [Zithromax 500 MG/ 250 ML Med 02/06/20 10:00 Discontinued NaCl Premix] 500 mg in 250 ml IV Q24H10 Azithromycin 500 mg/250 ml [Zithromax 500 MG/ 250 ML Med 02/06/20 22:00 Active NaCl Premix] 500 mg in 250 ml IV Q24H22 Azithromycin 500 mg/250 ml [Zithromax 500 MG/ 250 ML Med 02/05/20 20:36 Discontinued NaCl Premix] 500 mg in 250 ml IV UD Ceftriaxone 1 GM/50 ML PREMIX* [ROCEPHIN 1 Gm-D5w 50 ml Med 02/06/20 10:00 Discontinued Bag] 1 g in 50 ml IV Q24H10 Ceftriaxone 1 GM/50 ML PREMIX* [ROCEPHIN 1 Gm-D5w 50 ml Med 02/06/20 22:00 Active Bag] 1 g in 50 ml IV Q24H22 Ceftriaxone 1 GM/50 ML PREMIX* [ROCEPHIN 1 Gm-D5w 50 ml Med 02/05/20 20:37 Discontinued Bag] 1 g in 50 ml IV UD Docusate Sodium 100 mg [Colace 100 MG] Med 02/05/20 20:08 Active 100 mg PO BIDPRN PRN Enoxaparin Sodium [Enoxaparin Sodium] Med 02/05/20 20:40 Discontinued 40 mg SQ .STK-MED ONE Enoxaparin Sodium [Enoxaparin Sodium] Med 02/06/20 10:00 Active 40 mg SQ DAILY Escitalopram Oxalate 10 mg [Lexapro 10 MG] Med 02/06/20 10:00 Ordered 10 mg PO DAILY Hydrocodone/APAP 5/325 [[place] 5/325 mg] Med 02/06/20 07:03 Active 1 tab PO Q4H PRN PRN Methylprednisolone Sod Suc 40M [solu-MEDROL 40 MG] Med 02/05/20 22:00 Active 40 mg IV DAILY NaCl 0.9% 1000 ml [Sodium Chloride 0.9% 1000 ML] 1,000 Med 02/05/20 20:15 Active ml IV 100 mls/hr Omeprazole 20 MG [Prilosec 20 mg] Med 02/06/20 10:00 Ordered 20 mg PO DAILY Ondansetron HCl 4 mg/2 ml [Zofran 4 MG/2 ML VIAL] Med 02/05/20 20:08 Active 4 mg IV Q6H PRN PRN Oseltamivir 75 mg [Tamiflu 75MG Capsule] Med 02/05/20 22:00 Active 75 mg PO BID Potassium Chloride 10 Meq Tab* [Klor Con 10 MEQ] Med 02/06/20 10:00 Active 10 meq PO DAILY Pramipexole Di-HCl 0.5 mg [Mirapex 0.5 MG Tablet] Med 02/05/20 22:40 Active 0.5 mg PO HS Spironolactone 25 mg [Aldactone 25 MG] Med 02/05/20 22:40 Active 50 mg PO BID Vits A,C,E/Lutein/Minerals [Vision Formula with Lutein Med 02/06/20 10:00 Ordered Tab] 1 each PO DAILY EKG STAT RT 02/05/20 20:08 Completed Oxygen Nasal Cannula 3 lpm RT 02/05/20 20:08 Active Peak Expiratory Flow Rate RT 02/05/20 21:21 Active Pulse Oximetry [Pulse Oximetry] .spot check RT 02/05/20 21:21 Active RT Screen per Nursing Assess RT 02/05/20 21:24 Completed Respiratory Therapy Assessment RT 02/05/20 21:20 Active Respiratory Therapy Consult ROUTINE RT 02/05/20 20:08 Completed Patient Care Notes (Last 24 hours) 02/05/20 20:04 Nursing Note by Radha Crowley Patient arrived to ER and Dr. Brit ng admitted her to room 104. Initialized on 02/05/20 20:04 - END OF NOTE Code(s): J10.1 - FLU DUE TO OTH IDENT INFLUENZA VIRUS W OTH RESP MANIFEST (2) Acute exacerbation of chronic bronchitis Current Visit: No Status: Acute Code(s): J20.9 - ACUTE BRONCHITIS, UNSPECIFIED; J42 - UNSPECIFIED CHRONIC BRONCHITIS (3) COPD (chronic obstructive pulmonary disease) Current Visit: No Status: Chronic (4) HTN (hypertension) Current Visit: No Status: Chronic Code(s): I10 - ESSENTIAL (PRIMARY) HYPERTENSION
[2020-02-06] MEDS: NORVASC 5 MG PO SCH (09:21)
[2020-02-06] MEDS: Ocuvite Tablet PO SCH (09:22)
[2020-02-06] MEDS: Klor Con 10 MEQ PO SCH (09:22)
[2020-02-06] MEDS: Protonix 40MG Tablet PO SCH (09:22)
[2020-02-06] MEDS: Lexapro 10 MG PO SCH (09:22)
[2020-02-06] MEDS: NORCO 5/325 MG PO PRN ×2 (09:23→21:07)
[2020-02-06] MEDS: ZYLOPRIM 100 MG PO SCH (09:23)
[2020-02-06] MEDS: solu-MEDROL 40 MG IV SCH (09:23)
[2020-02-06] MEDS: Tamiflu 75MG Capsule PO SCH ×2 (09:23→21:07)
[2020-02-06] MEDS: Aldactone 25 MG PO SCH ×2 (09:23→21:07)
[2020-02-06] MEDS: ENOXAPARIN SODIUM SQ SCH (09:23)
[2020-02-06] MEDS: Sodium Chloride 0.9% 1000 ML 1,000 ML IV SCH ×2 (09:25→19:45)
[2020-02-06] MEDS ORDERED: MINERALS PO SCH (10:00)
[2020-02-06] MEDS ORDERED: LUTEIN PO SCH (10:00)
[2020-02-06] MEDS ORDERED: NON-FORMULARY ITEM (Omeprazole 20 Mg [Prilosec 20 Mg] 20 MG) PO SCH (10:00)
[2020-02-06] MEDS ORDERED: ROCEPHIN 1 Gm-D5w 50 ml Bag** 1 G/50 ML IVPB IV SCH (10:00)
[2020-02-06] MEDS ORDERED: Zithromax 500 MG/ 250 ML NaCl Premix 500 MG/250 ML IVPB IV SCH (10:00)
[2020-02-06] MEDS ORDERED: VITS A C E PO SCH (10:00)
--- NOTE | 2020-02-06 10:17 | XRAY ---
Indication: Short of breath. Comparison: March 19, 2019. PA/lateral chest unchanged again demonstrating chronic lung markings with a few tiny calcified granulomas. No focal infiltrate, consolidation, or large effusion. Heart is not enlarged. Bony thorax intact again with mild osteopenia and degenerative changes. Impression: Continued nonacute chest with chronic features. Comment: Preliminary interpretation was made by [facility]. No critical discrepancy.
[2020-02-06] MEDS ORDERED: DUONEB 0.5-3 MG/3 ml Neb IH PRN (12:57)
[2020-02-06 20:54] LABS: Appearance SLIGHTLY CLOUDY (CLEAR); Bilirubin NEGATIVE (NEGATIVE); Blood NEGATIVE Ery/ul (0-5); Epithelial Cells RARE /HPF (FEW); Glucose 50 mg/dL (NEGATIVE); Ketones TRACE (NEGATIVE); Leukocyte Esterase NEGATIVE (NEGATIVE); Mucus SLIGHT /HPF (NEGATIVE); Nitrite NEGATIVE (NEGATIVE); Protein,Urine Dip NEGATIVE (Negative); Specific Gravity 1.025 (1.005-1.025); Urobilinogen NEGATIVE mg/dL (0-1); WBC 0-2 /HPF (0-5)
[2020-02-06 20:55] LABS: Bacteria NONE SEEN /HPF (NEGATIVE)
[2020-02-06] MEDS: Mirapex 0.5 MG Tablet PO SCH (21:07)
[2020-02-06] MEDS: Zithromax 500 MG/ 250 ML NaCl Premix 500 MG/250 ML IVPB IV SCH (21:08)
[2020-02-06] MEDS: ROCEPHIN 1 Gm-D5w 50 ml Bag** 1 G/50 ML IVPB IV SCH (21:08)
[2020-02-07] MEDS: DUONEB 0.5-3 MG/3 ml Neb IH SCH ×4 (01:52→19:27)
[2020-02-07] MEDS: Sodium Chloride 0.9% 1000 ML 1,000 ML IV SCH (07:59)
[2020-02-07] MEDS: TYLENOL 325 MG PO PRN (07:59)
[2020-02-07] MEDS: solu-MEDROL 40 MG IV SCH (08:12)
[2020-02-07] MEDS: ZYLOPRIM 100 MG PO SCH (08:13)
[2020-02-07] MEDS: Protonix 40MG Tablet PO SCH (08:13)
[2020-02-07] MEDS: Klor Con 10 MEQ PO SCH (08:13)
[2020-02-07] MEDS: Ocuvite Tablet PO SCH (08:13)
[2020-02-07] MEDS: Tamiflu 75MG Capsule PO SCH ×2 (08:13→21:35)
[2020-02-07] MEDS: Aldactone 25 MG PO SCH ×2 (08:13→21:35)
[2020-02-07] MEDS: Lexapro 10 MG PO SCH (08:13)
[2020-02-07] MEDS: NORCO 5/325 MG PO PRN ×2 (08:14→21:35)
[2020-02-07] MEDS: ENOXAPARIN SODIUM SQ SCH (08:14)
[2020-02-07] MEDS: NORVASC 5 MG PO SCH (08:15)
[2020-02-07] MEDS: Mirapex 0.5 MG Tablet PO SCH (21:35)
[2020-02-07] MEDS: ROCEPHIN 1 Gm-D5w 50 ml Bag** 1 G/50 ML IVPB IV SCH (21:36)
[2020-02-07] MEDS: Zithromax 500 MG/ 250 ML NaCl Premix 500 MG/250 ML IVPB IV SCH (21:36)
[2020-02-08] MEDS: DUONEB 0.5-3 MG/3 ml Neb IH SCH ×2 (00:36→07:39)
[2020-02-08 04:54] LABS: Hematocrit 30.8 % (35-47); Hemoglobin 9.1 gm/dl (12.0-16.0); Mean Cell Volume 112.4 fl (78-100); Mean Corpuscular Hemoglobin 33.2 pg (26-32); Mean Corpuscular Hgb Concent. 29.5 g/dl (32-36); Mean Platelet Volume 10.1 fl (7.5-11.0); Platelet Count 372 K/mm3 (150-450); Red Blood Count 2.74 M/mm3 (4.1-5.4); Red Cell Distribution Width 16.8 % (11.5-14.0); White Blood Count 10.5 K/mm3 (4.0-10.5)
[2020-02-08 05:39] LABS: ANION GAP 11.8 MEQ/L (5-15); BLOOD UREA NITROGEN 24 mg/dL (7-17); CHLORIDE 107 mmol/L (98-107); Calcium 8.6 mg/dL (8.4-10.2); Carbon Dioxide 27 mmol/L (22-30); Glucose 183 mg/dL (74-106); Potassium 4.5 mmol/L (3.5-5.1); SODIUM 141 mmol/L (137-145)
[2020-02-08] MEDS: Protonix 40MG Tablet PO SCH (08:21)
[2020-02-08] MEDS: Lexapro 10 MG PO SCH (08:21)
[2020-02-08] MEDS: Tamiflu 75MG Capsule PO SCH (08:21)
[2020-02-08] MEDS: Aldactone 25 MG PO SCH (08:21)
[2020-02-08] MEDS: NORVASC 5 MG PO SCH (08:22)
[2020-02-08] MEDS: Ocuvite Tablet PO SCH (08:22)
[2020-02-08] MEDS: ZYLOPRIM 100 MG PO SCH (08:22)
[2020-02-08] MEDS: ENOXAPARIN SODIUM SQ SCH (08:24)
[2020-02-08] MEDS: Klor Con 10 MEQ PO SCH (08:24)
[2020-02-08] MEDS: solu-MEDROL 40 MG IV SCH (08:25)
[2020-02-08] MEDS: NORCO 5/325 MG PO PRN (08:27)
[2020-02-08 11:35] VITALS: BP 150/66; PULSE 89; O2SAT 95
== END 2020-02-08 12:57 | disposition home or self-care (01) | DRG 202 ==
LOC: ED 19:27 → OBSVTOIN 19:46 → MED SURG 19:46
PROVIDERS: ADMIT General Practice; ATTEND General Practice
DX: J20.9 Acute bronchitis, unspecified (principal); J44.0 Chronic obstructive pulmonary disease with (acute) lower respiratory infection; J44.1 Chronic obstructive pulmonary disease with (acute) exacerbation; J09.X2 Influenza due to identified novel influenza A virus with other respiratory manifestations; I10 Essential (primary) hypertension; Z79.899 Other long term (current) drug therapy
CPT/HCPCS: 36415; 71046; 80048; 80053; 81001; 83880; 85025; 85027; 87040; 87631; 93005; 94150; 94640; 94760; J0456; J0696; J1650; J2405; J2920; A9270-GY